=== PATIENT | male | born 1985 | race Two or more races ===

== ENCOUNTER 2017-07-06 16:50 | Emergency (ER) | payer MEDICAID ==
[~2017-07-06] VITALS: Ht 188 cm; Wt 153.0 kg
[~2017-07-06 16:50] MED LIST: HYDR-3965 PO; NABU500T2 PO; [UNRECOGNIZED DRUG - CODE] PO
[2017-07-06 17:07] VITALS: BP 152/79
[2017-07-06] MEDS ORDERED: ibuprofen 200mg tablet PO ONE (18:35)
== END 2017-07-06 19:11 | disposition home or self-care (01) ==
LOC: ER 16:50
DX: S69.92XA Unspecified injury of left wrist, hand and finger(s), initial encounter (principal); M25.532 Pain in left wrist; Z90.49 Acquired absence of other specified parts of digestive tract; Z98.890 Other specified postprocedural states; W22.8XXA Striking against or struck by other objects, initial encounter; Y93.83 Activity, rough housing and horseplay; Y92.099 Unspecified place in other non-institutional residence as the place of occurrence of the external cause; Y99.9 Unspecified external cause status
CPT/HCPCS: 73090; 73110; 99284; A6449

== ENCOUNTER 2017-07-15 08:58 | Outpatient (CLI) | payer MEDICAID | END 2017-07-15 09:35 | disposition home or self-care (01) | LOC: ORTHO 08:58 | PROVIDERS: ATTEND Nurse Practitioner Family | DX: S69.92XA Unspecified injury of left wrist, hand and finger(s), initial encounter (principal); F17.210 Nicotine dependence, cigarettes, uncomplicated; I10 Essential (primary) hypertension; Z90.49 Acquired absence of other specified parts of digestive tract; X58.XXXA Exposure to other specified factors, initial encounter; Y93.89 Activity, other specified; Y92.89 Other specified places as the place of occurrence of the external cause; Y99.8 Other external cause status | CPT/HCPCS: 29260 ==

== ENCOUNTER 2018-06-07 15:24 | Emergency (ER) | payer MEDICAID ==
[~2018-06-07] VITALS: Ht 185.4 cm; Wt 157.5 kg
[~2018-06-07 15:24] MED LIST changes: +DIPH-681 PO; +PROC-8 PEG
[2018-06-07 16:31] LABS: BASOPHILS % (AUTO) 0.4 % (0-1); EOSINOPHILS # (AUTO) 0.3 X10'3 (0-0.9); EOSINOPHILS % (AUTO) 2.5 % (0-6); HEMATOCRIT 42.7 % (42.0-52.0); HEMOGLOBIN 14.1 g/dl (14.0-17.9); LYMPHOCYTES # (AUTO) 1.6 X10'3 (1.1-4.8); LYMPHOCYTES % (AUTO) 13.2 % (21-51); MEAN CORPUSCULAR HEMOGLOBIN 28.4 PG (27.0-31.0); MEAN CORPUSCULAR HGB CONC 32.9 % (33.0-36.5); MEAN CORPUSCULAR VOLUME 86.3 FL (78-98); MEAN PLATELET VOLUME 9.2 FL (7.4-10.4); MONOCYTES # (AUTO) 0.7 X10'3 (0-0.9); NEUTROPHILS # (AUTO) 9.7 X10'3 (1.8-7.7); NEUTROPHILS % (AUTO) 77.9 % (42-75); PLATELET COUNT 239 X10'3 (140-440); RED BLOOD COUNT 4.95 X10'6 (4.70-6.10); RED CELL DISTRIBUTION WIDTH 14.1 % (11.5-14.5); WHITE BLOOD COUNT 12.5 X10'3 (4.5-11.0)
[2018-06-07 16:49] LABS: ALANINE AMINOTRANSFERASE 91 U/L (12-78); ALBUMIN 3.3 G/DL (3.4-5.0); ALBUMIN/GLOBULIN RATIO 0.9 (1.1-1.5); ALKALINE PHOSPHATASE 84 IU/L (46-116); ANION GAP 8 (8-16); ASPARTATE AMINO TRANSFERASE 16 U/L (10-37); BILIRUBIN,TOTAL 0.2 MG/DL (0.1-1.0); BLOOD UREA NITROGEN 9 MG/DL (7-18); BUN/CREATININE RATIO 11.5 (5.4-32.0); CALCIUM 8.3 MG/DL (8.5-10.1); CHLORIDE 106 MMOL/L (99-107); CREATININE 0.78 MG/DL (0.60-1.10); GLUCOSE 120 MG/DL (70-104); POTASSIUM 3.8 MMOL/L (3.5-5.1); SODIUM 141 MMOL/L (135-145); TOTAL CARBON DIOXIDE 27.2 MMOL/L (24-32); TOTAL PROTEIN 6.9 G/DL (6.4-8.2); eGFR > 90 ML/MIN
[2018-06-07 16:54] LABS: PARTIAL THROMBOPLASTIN TIME 27 SECONDS (22-32); PROTHROMBIN TIME 10.3 SECONDS (9.0-12.0)
[2018-06-07] MEDS ORDERED: IBUP100O20 PO (17:58)
[2018-06-07 18:38] VITALS: BP 130/77
== END 2018-06-07 18:40 | disposition home or self-care (01) ==
LOC: ER 15:24
DX: J95.830 Postprocedural hemorrhage of a respiratory system organ or structure following a respiratory system procedure (principal); G89.29 Other chronic pain; Z90.49 Acquired absence of other specified parts of digestive tract; Z98.890 Other specified postprocedural states; Z56.0 Unemployment, unspecified; Z79.899 Other long term (current) drug therapy
CPT/HCPCS: 36415; 80053; 85025; 85610; 85730; 86885; 86900; 86901; 99283

== ENCOUNTER 2019-03-28 20:44 | Emergency (ER) | payer MEDICAID ==
[~2019-03-28] VITALS: Ht 185.4 cm; Wt 145.0 kg
[2019-03-28] MEDS ORDERED: CEPH500C5 PO (22:26)
[2019-03-28 22:43] VITALS: BP 138/74
== END 2019-03-28 22:46 | disposition home or self-care (01) ==
LOC: ER 20:44
DX: K42.9 Umbilical hernia without obstruction or gangrene (principal); L03.311 Cellulitis of abdominal wall; G89.29 Other chronic pain; Z90.49 Acquired absence of other specified parts of digestive tract; Z98.890 Other specified postprocedural states; Z56.0 Unemployment, unspecified; Z79.2 Long term (current) use of antibiotics; Z79.899 Other long term (current) drug therapy
CPT/HCPCS: 74176; 99284

== ENCOUNTER 2019-04-04 09:05 | Observation (INO) | payer MEDICAID ==
[~2019-04-04] VITALS: Ht 185.4 cm; Wt 161.4 kg
[2019-04-04] VITALS (18 sets, daily range): BP systolic 126–171; BP diastolic 72–101
[~2019-04-04 09:05] MED LIST changes: +CEPH500C5 PO
[2019-04-04] MEDS ORDERED: NO HOME MEDS (12:50)
[2019-04-04 12:51] LABS: BASOPHILS # (AUTO) 0.1 X10'3 (0-0.2); BASOPHILS % (AUTO) 0.6 % (0-1); EOSINOPHILS # (AUTO) 0.3 X10'3 (0-0.9); EOSINOPHILS % (AUTO) 2.9 % (0-6); LYMPHOCYTES # (AUTO) 1.5 X10'3 (1.1-4.8); LYMPHOCYTES % (AUTO) 16.2 % (21-51); MEAN CORPUSCULAR HEMOGLOBIN 28.9 PG (27.0-31.0); MEAN CORPUSCULAR HGB CONC 33.6 g/dL (33.0-36.5); MEAN CORPUSCULAR VOLUME 86.1 FL (78-98); MEAN PLATELET VOLUME 9.2 FL (7.4-10.4); MONOCYTES # (AUTO) 0.5 X10'3 (0-0.9); MONOCYTES % (AUTO) 5.5 % (2-12); NEUTROPHILS # (AUTO) 7.1 X10'3 (1.8-7.7); NEUTROPHILS % (AUTO) 74.8 % (42-75); PRE OP HEMOGLOBIN 14.8 g/dL (14.0-17.9); PRE OP PLATELET COUNT 232 X10'3 (140-440); RED BLOOD COUNT 5.11 X10'6 (4.70-6.10); RED CELL DISTRIBUTION WIDTH 13.6 % (11.5-14.5)
[2019-04-04 13:01] LABS: ALKALINE PHOSPHATASE 101 IU/L (46-116); BLOOD UREA NITROGEN 12 MG/DL (7-18); BUN/CREATININE RATIO 15.2 (5.4-32.0); CALCIUM 8.8 MG/DL (8.5-10.1); CHLORIDE 106 MMOL/L (99-107); CREATININE 0.79 MG/DL (0.60-1.10); PRE OP ALT 53 U/L (30-65); PRE OP ANION GAP 9 (8-16); PRE OP AST 25 U/L (10-37); PRE OP BILIRUB, TOTAL 0.4 MG/DL (0.0-1.0); PRE OP GLUCOSE 90 MG/DL (70-104); PRE OP POTASSIUM 4.1 MMOL/L (3.4-5.1); PRE OP SODIUM 143 MMOL/L (135-145); TOTAL CARBON DIOXIDE 27.9 MMOL/L (24-32); TOTAL PROTEIN 8.1 G/DL (6.4-8.2); eGFR > 90 ML/MIN
[2019-04-04] MEDS ORDERED: meperidine/PF 25mg/ml syringe IV ONE (13:15)
[2019-04-04] MEDS ORDERED: cefazolin/dext.iso 2gm/100ml 100 ML IV ONE (13:30)
[2019-04-04] MEDS ORDERED: famotidine 20mg tablet PO ONE (13:35)
[2019-04-04] MEDS ORDERED: albuterol 2.5 MG/3 ML nebule NEB ONE (13:45)
[2019-04-04] MEDS ORDERED: cefazolin/dext.iso 2gm/50ml 50 ML IV ONE (14:00)
[2019-04-04] MEDS ORDERED: BUPIVAcaine/PF 2.5 mg/ml (0.25%) 30ml vial ONE (14:29)
[2019-04-04] MEDS ORDERED: ceFAZolin 1000mg inj ONE (14:29)
[2019-04-04] MEDS ORDERED: midazolam 2 mg/2 ml injection ONE (14:56)
[2019-04-04] MEDS ORDERED: fentaNYL /PF 50mcg/ml 5ml ampule ONE (14:56)
[2019-04-04] MEDS ORDERED: sevoflurane 250ml liquid IH ONE (15:10)
[2019-04-04] MEDS ORDERED: hydrALAZINE 20mg/ml inj. IV ONE (15:10)
[2019-04-04] MEDS ORDERED: succinylcholine 20mg/ml inj IV ONE (16:00)
[2019-04-04] MEDS ORDERED: ondansetron/PF 4mg/2ml inj ONE (16:00)
[2019-04-04] MEDS ORDERED: rocuronium 10mg/ml inj IV ONE (16:00)
[2019-04-04] MEDS ORDERED: neostigmine methylsulfate 1 MG/ML 10ml vial ONE (16:00)
[2019-04-04] MEDS ORDERED: LIDOcaine 2% (20mg/ml) 5ml vial ONE (16:00)
[2019-04-04] MEDS ORDERED: glycopyrrolate 0.2mg/ml inj ONE (16:00)
[2019-04-04] MEDS ORDERED: propofol inj 20 ML IV ONE (16:00)
[2019-04-04] MEDS ORDERED: dexamethasone sod phosphate 4mg/ml inj. ONE (16:00)
[2019-04-04] MEDS ORDERED: neomy sulf/bacitrac zn/polymixin b oint 14.2 gm tube TP ONE (16:27)
--- NOTE | 2019-04-04 16:44 | NUR ---
Received from OR via [facility] , accompanied by Anesthesiologist PRIYANKA and report given by Anesthesiolgist. PATIENT WITH 20G PIV IN RIGHT UE RUNNING LR AT 100. DENIES PAIN AT THIS TIME. BREATHING TREATMENT UPON ARRIVAL VIA RT. 3 ABDOMINAL BANDAIDS PRESENT. VSS. Addendum: 04/04/19 at 1657 by Eugene Weaver RN, RN Amended: Links added.
[2019-04-04] MEDS ORDERED: ringers solution, lacted 1,000 ML IV SCH (16:48)
[2019-04-04] MEDS ORDERED: meperidine/PF 25mg/ml syringe IV PRN ×3 (16:50)
[2019-04-04] MEDS ORDERED: morphine 4 MG/ML inj SYRINge IV PRN ×2 (16:50)
[2019-04-04] MEDS ORDERED: proCHLORperazine 10 MG/2 ml inj IV PRN (16:50)
[2019-04-04] MEDS ORDERED: ondansetron/PF 4mg/2ml inj IV PRN ×2 (16:50→17:15)
[2019-04-04] MEDS ORDERED: ipratropium/albuterol 3ml nebule ONE (16:59)
[2019-04-04] MEDS ORDERED: albuterol 60 PUFF/8GM Inhaler IH ONE (16:59)
[2019-04-04] MEDS: ipratropium/albuterol 3ml nebule NEB PRN ×2 (17:00→21:07)
[2019-04-04] MEDS ORDERED: meperidine/PF 25mg/ml syringe ONE (17:08)
[2019-04-04] MEDS ORDERED: HYDROcodone/acetaminophen 10/325mg tab PO PRN (17:15)
--- NOTE | 2019-04-04 18:14 | NUR ---
ALL CRITERIA FOR TRANSFER TO THE FLOOR HAS BEEN ACHIEVED. VSS. BED LOW, CALL LIGHT AND VS. SET IN PLACE. RN PRESENT TO ACCEPT CARE. PATIENT RESTING COMFORTABLY IN BED. BELONGINGS SENT WITH PATIENT. DRESSINGS CDI. MARIA E HORNER PRESENT TO ACCEPT PATIENT UPON ARRIVAL.. PATIENT TRANSFERED SELF TO BED WITH CGA.DISPATCH CLERK PRESENT TO ASSIST IN SET UP OF VS ON THIS PATIENT. LOW ABDOMINAL BANDAID OOZY WITH NEOSPORIN. Addendum: 04/04/19 at 1831 by Eugene Flores - MARI AE SANDERSON Amended: Links added.
--- NOTE | 2019-04-04 18:15 | NUR ---
RECEIVED REPORT FROM MARIA E VALENCIA FROM . PT BROUGHT UP VIA GURNEY TRANSFERRED TO BED. ALERT AND ORIENTED. ORIENTED TO ROOM AND ROUTINE. Addendum: 04/05/19 at 0105 by Rah Grullon RN Amended: Links added.
--- NOTE | 2019-04-04 18:25 | NUR ---
PT DECLINES FULL SKIN ASSESSMENT BY Zay SANDERSON, STATES SKIN INTACT, DRESSING TO ABD INTACT, AMRS, CHEST BACK, LEGS AND BUTTOCKS CLEAR. Addendum: 04/05/19 at 0148 by Rah Grullon RN Amended: Links added.
[2019-04-04] MEDS: HYDROcodone/acetaminophen 10/325mg tab PO PRN (19:29)
[2019-04-04] MEDS: ketorolac trometh. 30mg/ml inj. IV PRN (22:11)
[2019-04-04] MEDS: ceFAZolin 1GM/D5W- ADD-VANTAGE 50 ML IV SCH (23:47)
[2019-04-04] MEDS: normal saline 1000ml 1,000 ML IV SCH (23:47)
[2019-04-05 00:30] VITALS: BP 113/60
[2019-04-05] MEDS: normal saline 1000ml 1,000 ML IV SCH ×2 (03:15→13:15)
[2019-04-05] MEDS: HYDROcodone/acetaminophen 10/325mg tab PO PRN (04:27)
[2019-04-05] MEDS: ketorolac trometh. 30mg/ml inj. IV PRN (04:27)
--- NOTE | 2019-04-05 06:59 | NUR ---
Patient in room [facility]. I have received report from Marcela SANDERSON and had the opportunity to ask questions and assume patient care.
--- NOTE | 2019-04-05 07:05 | NUR ---
Problems reprioritized. Patient report given, questions answered & plan of care reviewed with MARIA E Smith, RN. Addendum: 04/05/19 at 0706 by Rah Grullon RN Amended: Links added.
[2019-04-05 07:18] VITALS: BP 146/81
[2019-04-05] MEDS: ceFAZolin 1GM/D5W- ADD-VANTAGE 50 ML IV SCH (07:31)
[2019-04-05] MEDS ORDERED: lactobacillus rhamnosus 10,000 MMU CELLS/CAPSULE PO SCH (20:00)
== END 2019-04-05 14:35 | disposition home or self-care (01) ==
LOC: PAS 09:05 → SUR 3N 17:26
PROVIDERS: ADMIT Surgery; ATTEND Surgery
DX: K42.0 Umbilical hernia with obstruction, without gangrene (principal); K76.0 Fatty (change of) liver, not elsewhere classified; L03.316 Cellulitis of umbilicus; M19.90 Unspecified osteoarthritis, unspecified site; E66.01 Morbid (severe) obesity due to excess calories; F17.210 Nicotine dependence, cigarettes, uncomplicated; Z90.49 Acquired absence of other specified parts of digestive tract; Z90.89 Acquired absence of other organs; Z68.42 Body mass index [BMI] 45.0-49.9, adult
CPT/HCPCS: 36415; 49653; 80053; 85025; 87081; 93005; 94640; 94760; 96365; 96366; 96375; 96376; C1758; G0378; J0330; J0360; J0690; J1100; J1885; J2001; J2175; J2250; J2270; J2405; J2704; J2710; J3010; J3490; J7030; J7120; A4215; A4618; A7000

== ENCOUNTER 2019-09-15 12:00 | Emergency (ER) | payer MEDICAID ==
[~2019-09-15] VITALS: Ht 185.4 cm; Wt 36.6 kg
[~2019-09-15 12:00] MED LIST changes: -CEPH500C5 PO; -DIPH-681 PO; -HYDR-3965 PO; -NABU500T2 PO; +NO HOME MEDS; -PROC-8 PEG; -[UNRECOGNIZED DRUG - CODE] PO
[2019-09-15 12:04] VITALS: BP 150/85
[2019-09-15] MEDS ORDERED: BUPIVAcaine/PF 7.5mg/ml (0.75%) 10ml vial IJ ONE (13:10)
[2019-09-15] MEDS ORDERED: NAPR-56 PO (14:37)
== END 2019-09-15 14:52 | disposition home or self-care (01) ==
LOC: ER 12:00
DX: R51 Headache (principal); M54.2 Cervicalgia; R42 Dizziness and giddiness; G89.29 Other chronic pain; Z90.49 Acquired absence of other specified parts of digestive tract; Z90.89 Acquired absence of other organs; Z56.0 Unemployment, unspecified; Z79.899 Other long term (current) drug therapy
CPT/HCPCS: 64450; 70450; 99284

== ENCOUNTER 2020-01-16 05:17 | Day surgery (SDC) | payer MEDICAID ==
[2020-01-09 16:46] LABS: CLARITY,URINE CLEAR (Clear); COLOR,URINE YELLOW (Yellow); GLUCOSE, URINE NEGATIVE (Neg); KETONES,URINE NEGATIVE (Neg); LEUKOCYTE ESTERASE ,URINE NEGATIVE (Neg); NITRITES, URINE NEGATIVE (Neg); OCCULT BLOOD,URINE NEGATIVE (Neg); PROTEIN,URINE NEGATIVE (Neg); UA COLLECTION TYPE CLN CATCH MIDSTREAM; UROBILINOGEN,URINE 0.2 E.U/dL (0.2-1.0)
[2020-01-09 16:52] LABS: BASOPHILS # (AUTO) 0.1 X10'3 (0-0.2); BASOPHILS % (AUTO) 0.9 % (0-1); EOSINOPHILS # (AUTO) 0.4 X10'3 (0-0.9); LYMPHOCYTES # (AUTO) 1.9 X10'3 (1.1-4.8); LYMPHOCYTES % (AUTO) 16.5 % (21-51); MEAN CORPUSCULAR HEMOGLOBIN 28.3 PG (27.0-31.0); MEAN CORPUSCULAR HGB CONC 33.1 g/dL (33.0-36.5); MEAN CORPUSCULAR VOLUME 85.4 FL (78-98); MEAN PLATELET VOLUME 9.4 FL (7.4-10.4); MONOCYTES # (AUTO) 0.9 X10'3 (0-0.9); MONOCYTES % (AUTO) 7.3 % (2-12); NEUTROPHILS # (AUTO) 8.4 X10'3 (1.8-7.7); NEUTROPHILS % (AUTO) 72.3 % (42-75); PRE OP HEMATOCRIT 42.8 % (42.0-52.0); PRE OP HEMOGLOBIN 14.2 g/dL (14.0-17.9); PRE OP PLATELET COUNT 264 X10'3 (140-440); RED BLOOD COUNT 5.01 X10'6 (4.70-6.10); RED CELL DISTRIBUTION WIDTH 13.9 % (11.5-14.5)
[2020-01-09 17:01] LABS: ALBUMIN 3.8 G/DL (3.4-5.0); ALKALINE PHOSPHATASE 88 IU/L (46-116); BLOOD UREA NITROGEN 14 MG/DL (7-18); BUN/CREATININE RATIO 15.2 (5.4-32.0); CALCIUM 8.7 MG/DL (8.5-10.1); CHLORIDE 107 MMOL/L (99-107); CREATININE 0.92 MG/DL (0.60-1.10); PRE OP ALT 51 U/L (30-65); PRE OP ANION GAP 5 (8-16); PRE OP AST 22 U/L (10-37); PRE OP BILIRUB, TOTAL 0.2 MG/DL (0.0-1.0); PRE OP GLUCOSE 100 MG/DL (70-104); PRE OP SODIUM 142 MMOL/L (135-145); TOTAL CARBON DIOXIDE 30.1 MMOL/L (24-32); TOTAL PROTEIN 7.8 G/DL (6.4-8.2); eGFR > 90 ML/MIN
[2020-01-16] VITALS (19 sets, daily range): BP systolic 117–189; BP diastolic 64–114
[~2020-01-16] VITALS: Ht 185.4 cm; Wt 145.2 kg
[~2020-01-16 05:17] MED LIST changes: +ringers solution, lacted 1,000 ML IV SCH
[2020-01-16] MEDS ORDERED: famotidine 20mg tablet PO ONE (05:30)
[2020-01-16] MEDS ORDERED: ceFAZolin inj. 3,000 MG in normal saline 100ml IV soln 100 ML IV ONE (05:30)
[2020-01-16] MEDS ORDERED: LIDOcaine 1% (10mg/ml) 2ml vial ONE (05:43)
[2020-01-16] MEDS ORDERED: BUPIVAcaine/PF 2.5 mg/ml (0.25%) 30ml vial ONE ×2 (06:47→07:20)
[2020-01-16] MEDS ORDERED: BUPIVACAINE liposomal/PF 13.3 MG/ML vial IM ONE (07:20)
[2020-01-16] MEDS ORDERED: fentaNYL/PF 50MCG/1 ML 2ML syringe ONE (07:25)
[2020-01-16] MEDS ORDERED: midazolam 2 mg/2 ml injection ONE (07:26)
[2020-01-16] MEDS ORDERED: LIDOcaine 2% 5ml jelly ONE (07:35)
[2020-01-16] MEDS ORDERED: propofol inj 20 ML IV ONE (08:14)
[2020-01-16] MEDS ORDERED: ondansetron/PF 4mg/2ml inj ONE (08:14)
[2020-01-16] MEDS ORDERED: dexamethasone sod phosphate 4mg/ml inj. ONE (08:14)
[2020-01-16] MEDS ORDERED: LIDOcaine 2% (20mg/ml) 5ml vial ONE (08:14)
[2020-01-16] MEDS ORDERED: rocuronium 10mg/ml inj IV ONE (08:14)
[2020-01-16] MEDS ORDERED: ringers solution, lacted 1,000 ML IV SCH (08:21)
[2020-01-16] MEDS ORDERED: meperidine/PF 25mg/ml syringe IV PRN ×2 (08:25)
[2020-01-16] MEDS ORDERED: labetalol 20mg/4ml (5mg/ml) syringe IV PRN (08:25)
[2020-01-16] MEDS ORDERED: hydrALAZINE 20mg/ml inj. IV PRN (08:25)
[2020-01-16] MEDS ORDERED: ondansetron/PF 4mg/2ml inj IV PRN (08:25)
[2020-01-16] MEDS ORDERED: proCHLORperazine 10 MG/2 ml inj IV PRN (08:25)
[2020-01-16] MEDS ORDERED: ketorolac trometh. 30mg/ml inj. IV ONE (08:25)
[2020-01-16] MEDS ORDERED: morphine 2 MG/ML inj. syringe IV PRN (08:25)
[2020-01-16] MEDS ORDERED: bacitracin 15gm ointment TP ONE (09:04)
[2020-01-16] MEDS ORDERED: sugammadex 200mg/2ml injection IV ONE (09:06)
--- NOTE | 2020-01-16 09:44 | NUR ---
Received from OR via [facility] , accompanied by Anesthesiologist SOCRATES and report given by Anesthesiolgist. PATIENT WITH 7 LAP SITES PRESENT. VSS. MEDICATED FOR PAIN UPON ARRIVAL. 20G PIV IN LEFT HAND. Addendum: 01/16/20 at 0958 by Eugene Weaver RN RN Amended: Links added.
[2020-01-16] MEDS: meperidine/PF 25mg/ml syringe IV PRN ×2 (09:51→10:43)
[2020-01-16] MEDS: morphine 4 MG/ML inj SYRINge IV PRN ×2 (10:12→10:33)
[2020-01-16] MEDS ORDERED: HYDROmorphone inj. 0.5 MG/0.5 ML DISP.SYRIN IV PRN (10:50)
--- NOTE | 2020-01-16 11:14 | NUR ---
Report called to receiving nurse. Transferred via [facility] WITH Belongings . Special Issues communicated to receiving nurse LITO SANDERSON.VSS. PATIENT STILL ON 2L 02 VIA MA. PAIN TOLEARBLE AT THIS TIME. Addendum: 01/16/20 at 1126 by Eugene Weaver RN, RN Amended: Links added.
--- NOTE | 2020-01-16 11:15 | NUR ---
RECEIVED PT FROM PACU FOR PAIN CONTROL AND LOW 02 SATS PRIOR TO DC HOME. ENCOURAGED PT TO C&DB, IS PROVIDED WITH INSTRUCTIONS PT ATTEMPTED USE WITH GOOD EFFORT AND GOOD INCREASE IN O2 SATS. SPOKE WITH DR. VENTURA R/T PAIN, PO PAIN MED ORDERED FOR PT. SALINES AND WATER ELIAN WELL
[2020-01-16] MEDS ORDERED: oxyCODONE/APAP 10/325mg tablet PO ONE (11:30)
--- NOTE | 2020-01-16 11:35 | NUR ---
PO PAIN GIVEN
--- NOTE | 2020-01-16 12:15 | NUR ---
O2 SAT AND PAIN BETTER PER PT. WILL ATTEMPT GETTING PT UP AND MOBILE AT 1230, PLAN REVIEWED WITH PT AND AGREEABLE
--- NOTE | 2020-01-16 12:50 | NUR ---
PT ABLE TO STAND AT BEDSIDE. RN ASSISTED PT TO DRESS. AMB IN [place]IREZ AND ELIAN WELL. ABD SPLINTING EDUCATION GIVEN, PT DID WELL IMPLEMENTING TECHNIQUE. PER PT IT HELP A LOT.
--- NOTE | 2020-01-16 14:30 | NUR ---
PT FELLING BETTER AFTER SOME SLEEP. VOIDED QS. DC READY. IV DC'D. DC INSTR DISCUSSED WITH PT AND COPY SENT HOME WITH PT. PT AWARE PAIN MEDS ARE AT PHARMACY OF CHOICE SENT IN BY MD OFFICE. PT TO POV VIA FOR DC HOME, BROTHER DRIVING. ALL BELONGINGS SENT WITH PT
== END 2020-01-16 14:30 | disposition home or self-care (01) ==
LOC: PAS 05:17
PROVIDERS: ATTEND Surgery
DX: K42.0 Umbilical hernia with obstruction, without gangrene (principal); G47.30 Sleep apnea, unspecified; M19.90 Unspecified osteoarthritis, unspecified site; E66.01 Morbid (severe) obesity due to excess calories; Z98.890 Other specified postprocedural states; F17.210 Nicotine dependence, cigarettes, uncomplicated; Z90.49 Acquired absence of other specified parts of digestive tract; Z79.899 Other long term (current) drug therapy
CPT/HCPCS: 36415; 49653; 64488; 80053; 81003; 82948; 85025; 87635; 93005; C1758; C1781; C9290; C9399; C9803; J0690; J1100; J1170; J1885; J2001; J2175; J2250; J2270; J2405; J2704; J3010; J3490; J7120; U0003; A4215; A4618; A7000

== ENCOUNTER 2020-11-02 11:03 | Emergency (ER) | payer MEDICAID ==
[~2020-11-02] VITALS: Ht 185.4 cm; Wt 155.9 kg
[~2020-11-02 11:03] MED LIST changes: -ringers solution, lacted 1,000 ML IV SCH
[2020-11-02 11:48] LABS: CLARITY,URINE CLEAR (Clear); COLOR,URINE YELLOW (Yellow); GLUCOSE, URINE NEGATIVE (Neg); KETONES,URINE NEGATIVE (Neg); LEUKOCYTE ESTERASE ,URINE NEGATIVE (Neg); NITRITES, URINE NEGATIVE (Neg); OCCULT BLOOD,URINE NEGATIVE (Neg); PH,URINE 5.5 (4.8-8.0); PROTEIN,URINE NEGATIVE (Neg); UROBILINOGEN,URINE 0.2 E.U/dL (0.2-1.0)
[2020-11-02 11:50] LABS: UA COLLECTION TYPE URINAL
[2020-11-02] MEDS ORDERED: acetaminophen 325mg tablet PO ONE (12:05)
[2020-11-02] MEDS ORDERED: cyclobenzaprine 10mg tablet PO ONE (12:05)
[2020-11-02 12:23] VITALS: BP 144/78
== END 2020-11-02 13:14 | disposition home or self-care (01) ==
LOC: ER 11:03
DX: R07.89 Other chest pain (principal); G89.29 Other chronic pain; F17.200 Nicotine dependence, unspecified, uncomplicated; Z90.49 Acquired absence of other specified parts of digestive tract; Z56.0 Unemployment, unspecified
CPT/HCPCS: 71045; 81003; 99284

== ENCOUNTER 2021-02-04 06:35 | Inpatient (IN) | payer MEDICAID ==
[2021-01-28 15:15] LABS: CLARITY,URINE CLEAR (Clear); COLOR,URINE YELLOW (Yellow); GLUCOSE, URINE NEGATIVE (Neg); KETONES,URINE NEGATIVE (Neg); LEUKOCYTE ESTERASE ,URINE NEGATIVE (Neg); NITRITES, URINE NEGATIVE (Neg); OCCULT BLOOD,URINE NEGATIVE (Neg); PROTEIN,URINE NEGATIVE (Neg); UA COLLECTION TYPE VOIDED; UROBILINOGEN,URINE 0.2 E.U/dL (0.2-1.0)
[2021-01-28 15:20] LABS: BASOPHILS # (AUTO) 0.1 X10'3 (0-0.2); BASOPHILS % (AUTO) 0.6 % (0-1); EOSINOPHILS # (AUTO) 0.4 X10'3 (0-0.9); EOSINOPHILS % (AUTO) 3.1 % (0-6); LYMPHOCYTES % (AUTO) 16.7 % (21-51); MEAN CORPUSCULAR HEMOGLOBIN 28.2 PG (27.0-31.0); MEAN CORPUSCULAR HGB CONC 33.6 g/dL (33.0-36.5); MEAN CORPUSCULAR VOLUME 84.1 FL (78-98); MEAN PLATELET VOLUME 9.4 FL (7.4-10.4); MONOCYTES # (AUTO) 0.7 X10'3 (0-0.9); MONOCYTES % (AUTO) 5.6 % (2-12); NEUTROPHILS # (AUTO) 8.9 X10'3 (1.8-7.7); PRE OP HEMATOCRIT 44.2 % (42.0-52.0); PRE OP HEMOGLOBIN 14.8 g/dL (14.0-17.9); PRE OP PLATELET COUNT 241 X10'3 (140-440); RED BLOOD COUNT 5.25 X10'6 (4.70-6.10); RED CELL DISTRIBUTION WIDTH 14.4 % (11.5-14.5)
[2021-01-28 15:31] LABS: ALBUMIN 3.9 G/DL (3.4-5.0); ALBUMIN/GLOBULIN RATIO 0.9 (1.1-1.5); ALKALINE PHOSPHATASE 86 IU/L (46-116); BLOOD UREA NITROGEN 14 MG/DL (7-18); BUN/CREATININE RATIO 17.9 (5.4-32.0); CALCIUM 9.1 MG/DL (8.5-10.1); CHLORIDE 105 MMOL/L (99-107); CREATININE 0.78 MG/DL (0.60-1.10); PRE OP ALT 54 U/L (30-65); PRE OP ANION GAP 8 (8-16); PRE OP AST 24 U/L (10-37); PRE OP BILIRUB, TOTAL 0.3 MG/DL (0.0-1.0); PRE OP GLUCOSE 97 MG/DL (70-104); PRE OP POTASSIUM 4.1 MMOL/L (3.4-5.1); PRE OP SODIUM 141 MMOL/L (135-145); TOTAL CARBON DIOXIDE 28.2 MMOL/L (24-32); TOTAL PROTEIN 8.1 G/DL (6.4-8.2); eGFR > 90 ML/MIN
[~2021-02-04] VITALS: Ht 185.4 cm; Wt 160.6 kg
[2021-02-04] VITALS (23 sets, daily range): BP systolic 132–192; BP diastolic 70–106
[~2021-02-04 06:35] MED LIST changes: +IBUP-24 PO; -NO HOME MEDS; +TEST200V10 IM; +ceFAZolin inj. 3,000 MG in normal saline 100ml IV soln 100 ML IV ONE; +famotidine 20mg tablet PO ONE
[2021-02-04] MEDS: ringers solution, lacted 1,000 ML IV SCH ×2 (08:05→17:07)
[2021-02-04] MEDS ORDERED: BUPIVAcaine/PF 2.5mg/ml (0.25%) 10ml vial ONE ×2 (10:11→13:04)
[2021-02-04] MEDS ORDERED: proCHLORperazine 10 MG/2 ml inj IV PRN (10:25)
[2021-02-04] MEDS ORDERED: morphine 2 MG/ML inj. syringe IV PRN (10:25)
[2021-02-04] MEDS ORDERED: ringers solution, lacted 1,000 ML IV SCH (10:25)
[2021-02-04] MEDS ORDERED: ondansetron/PF 4mg/2ml inj IV PRN (10:25)
[2021-02-04] MEDS ORDERED: meperidine/PF 25mg/ml syringe IV PRN ×2 (10:25)
[2021-02-04] MEDS ORDERED: sevoflurane 250ml liquid IH ONE (11:11)
[2021-02-04] MEDS ORDERED: midazolam 1 mg/ML 2ml injection ONE (11:15)
[2021-02-04] MEDS ORDERED: fentaNYL /PF 50mcg/ml 5ml ampule ONE (11:15)
[2021-02-04] MEDS ORDERED: BUPIVACAINE liposomal/PF 13.3 MG/ML vial IM ONE ×2 (11:34→12:10)
[2021-02-04] MEDS ORDERED: acetaminophen 1,000mg/100ml IV 100 ML IV ONE (12:09)
[2021-02-04] MEDS ORDERED: dexamethasone sod phosphate 4mg/ml inj. ONE (12:09)
[2021-02-04] MEDS ORDERED: rocuronium 10mg/ml inj IV ONE (12:09)
[2021-02-04] MEDS ORDERED: neostigmine methylsulfate 1 MG/ML 10ml vial ONE (12:09)
[2021-02-04] MEDS ORDERED: LIDOcaine 2% (20mg/ml) 5ml vial ONE (12:09)
[2021-02-04] MEDS ORDERED: propofol inj 20 ML IV ONE (12:09)
[2021-02-04] MEDS ORDERED: ondansetron/PF 4mg/2ml inj ONE (12:09)
[2021-02-04] MEDS ORDERED: glycopyrrolate 0.2mg/ml inj ONE (12:09)
[2021-02-04] MEDS ORDERED: hydrALAZINE 20mg/ml inj. IV ONE (12:17)
[2021-02-04] MEDS ORDERED: meperidine/PF 50mg/ml syringe ONE (13:44)
[2021-02-04] MEDS ORDERED: naloxone 0.4 mg/ml inj IV PRN (13:45)
[2021-02-04] MEDS ORDERED: HYDROcodone/acetaminophen 5mg/325mg tablet PO PRN (13:45)
[2021-02-04] MEDS ORDERED: CADD PCA waste documentation MC PRN (13:45)
--- NOTE | 2021-02-04 13:48 | NUR ---
Received from OR via [facility] , accompanied by Anesthesiologist PRIYANKA and report given by Anesthesiolgist. PATIENT WITH 20G PIV IN LEFT UE RUNNING LR AT 100. LAP SITES TO ABDOMEN ARE CDI. 10L MASK ON AND POSITIONED FOR OPTIMAL BREATHING. 10L MASK ON WITH 100% SATS. Addendum: 02/04/21 at 1404 by Eugene Weaver RN, RN Amended: Links added.
[2021-02-04] MEDS ORDERED: ibuprofen 200mg tablet PO PRN (14:00)
[2021-02-04] MEDS: HYDROmorph./NS 0.2 mg/ml CADD 100 ML IV SCH ×6 (14:25→23:00)
[2021-02-04] MEDS: morphine 4 MG/ML inj SYRINge IV PRN ×2 (14:35→15:39)
[2021-02-04] MEDS: meperidine/PF 25mg/ml syringe IV PRN ×2 (14:47→15:14)
--- NOTE | 2021-02-04 15:45 | NUR ---
Pt arrived to surgical floor via gurney. Transferred to hospital bed using hovermat. Post op VS started, call light placed within reach. 2 bags of belongings transferred with pt, 1 black backpack and 1 clear bag. Will continue to monitor.
--- NOTE | 2021-02-04 15:48 | NUR ---
PATIENT HAS MET ALL CRITERIA FOR TRANSFER TO THE SURGICAL/[facility]/PCU/ORTHO/ICU FLOOR. VSS. DRESSINGS INTACT. BED LOW, CALL LIGHT PRESENT AND 2 RAILS UP. RN PRESENT TO ACCEPT CARE OF PATIENT AND REPORT HAS BEEN CALLED. ALL QUESTIONS ANSWERED TO ACCEPTING RN. MARIA E ABDALLA PRESENT TO ACCEPT AND ASSESS PATIENT. Addendum: 02/04/21 at 1559 by Eugene Flores - MARIA E RN Amended: Links added.
--- NOTE | 2021-02-04 18:40 | NUR ---
Problems reprioritized. Patient report given, questions answered & plan of care reviewed with MARIA E Villarreal.
[2021-02-04] MEDS: Potassium Cl inj 20 MEQ in ringers solution, lacted 1,000 ML IV SCH ×2 (19:59→21:50)
[2021-02-04] MEDS: docusate sod 100mg capsule PO SCH (20:00)
[2021-02-04] MEDS: ondansetron/PF 4mg/2ml inj IV PRN (20:13)
[2021-02-04] MEDS: ketorolac trometh. 30mg/ml inj. IV PRN (23:12)
[2021-02-05] VITALS: BP 127/64
[2021-02-05] MEDS: HYDROmorph./NS 0.2 mg/ml CADD 100 ML IV SCH ×12 (01:00→23:00)
[2021-02-05] MEDS: Potassium Cl inj 20 MEQ in ringers solution, lacted 1,000 ML IV SCH ×3 (04:35→22:05)
--- NOTE | 2021-02-05 06:44 | NUR ---
Problems reprioritized. Patient report given, questions answered & plan of care reviewed with Blank SANDERSON.
[2021-02-05 07:08] LABS: BASOPHILS % (AUTO) 0.2 % (0-1); EOSINOPHILS # (AUTO) 0.1 X10'3 (0-0.9); EOSINOPHILS % (AUTO) 0.6 % (0-6); HEMATOCRIT 38.1 % (42.0-52.0); HEMOGLOBIN 12.6 g/dl (14.0-17.9); LYMPHOCYTES # (AUTO) 1.3 X10'3 (1.1-4.8); LYMPHOCYTES % (AUTO) 8.9 % (21-51); MEAN CORPUSCULAR HEMOGLOBIN 28.3 PG (27.0-31.0); MEAN CORPUSCULAR VOLUME 85.8 FL (78-98); MEAN PLATELET VOLUME 9.5 FL (7.4-10.4); MONOCYTES # (AUTO) 1.1 X10'3 (0-0.9); MONOCYTES % (AUTO) 7.8 % (2-12); NEUTROPHILS % (AUTO) 82.5 % (42-75); PLATELET COUNT 271 X10'3 (140-440); RED BLOOD COUNT 4.45 X10'6 (4.70-6.10); RED CELL DISTRIBUTION WIDTH 14.4 % (11.5-14.5); WHITE BLOOD COUNT 14.5 X10'3 (4.5-11.0)
[2021-02-05] MEDS: docusate sod 100mg capsule PO SCH ×2 (07:53→19:58)
[2021-02-05] MEDS: ketorolac trometh. 30mg/ml inj. IV PRN (07:58)
[2021-02-05 08:00] VITALS: BP 123/65
[2021-02-05 11:00] VITALS: BP 169/79
[2021-02-05 15:00] VITALS: BP 143/59
--- NOTE | 2021-02-05 19:01 | NUR ---
Report given to Keya Laura Rn, pt resting comfortably in room.
[2021-02-05 20:00] VITALS: BP 162/80
[2021-02-06] VITALS: BP 134/71
[2021-02-06] MEDS: HYDROmorph./NS 0.2 mg/ml CADD 100 ML IV SCH ×12 (01:00→23:00)
[2021-02-06] MEDS: Potassium Cl inj 20 MEQ in ringers solution, lacted 1,000 ML IV SCH ×3 (01:59→18:53)
--- NOTE | 2021-02-06 06:40 | NUR ---
Problems reprioritized. Patient report given, questions answered & plan of care reviewed with LENY SANDERSON.
[2021-02-06 07:00] VITALS: BP 125/70
[2021-02-06] MEDS: docusate sod 100mg capsule PO SCH ×2 (07:38→19:29)
[2021-02-06 11:00] VITALS: BP 126/62
--- NOTE | 2021-02-06 12:59 | NUR ---
Dr Pandey rounded, speaking to pt and pt's SO. ordered Lovenox SQ with pharmacy to dose. Yari, pharmacist, stated that d/t pt is >150 kg heparin is indicated, not Lovenox. Also, as last dose of Toradol was on 02/05, and risk of bleeding increases if on both Toradol and Heparin, she recommended Toradol be discontinued. Dr. Pandey notified and is agreeable w/ above.
[2021-02-06] MEDS: ondansetron/PF 4mg/2ml inj IV PRN (13:20)
[2021-02-06] MEDS: ibuprofen 200mg tablet PO PRN (17:30)
[2021-02-06 18:00] VITALS: BP 128/70
[2021-02-06] MEDS: heparin, porcine 5000 units/ml vial SQ SCH (19:27)
[2021-02-06 23:45] VITALS: BP 116/59
[2021-02-07] MEDS: HYDROmorph./NS 0.2 mg/ml CADD 100 ML IV SCH ×4 (01:00→06:43)
[2021-02-07] MEDS: Potassium Cl inj 20 MEQ in ringers solution, lacted 1,000 ML IV SCH (03:53)
--- NOTE | 2021-02-07 06:46 | NUR ---
Report given to Cherelle SANDERSON, all questions answered. Pt doing well, no new complaints or problems.
--- NOTE | 2021-02-07 06:51 | NUR ---
Patient in room [facility] 345. I have received report from Blank SANDERSON and had the opportunity to ask questions and assume patient care.
[2021-02-07 07:00] VITALS: BP 138/77
[2021-02-07] MEDS: heparin, porcine 5000 units/ml vial SQ SCH (07:59)
[2021-02-07] MEDS ORDERED: oxyCODONE/APAP 10/325mg tablet PO PRN (08:00)
[2021-02-07] MEDS: docusate sod 100mg capsule PO SCH (08:00)
[2021-02-07] MEDS: ibuprofen 200mg tablet PO PRN (09:22)
[2021-02-07 11:00] VITALS: BP 134/73
--- NOTE | 2021-02-07 11:06 | NUR ---
Patients discharge instructions reviewed with patient. Patient verbalized understanding. DC'd patients IV cannula intact. Patient taken to [employer] vehicle via wheelchair. Patient states he has all his belongings.
[2021-02-10] MEDS ORDERED: TESTOSTERONE CYPIONATE 200 MG/ML VIAL IM SCH (10:00)
== END 2021-02-07 11:05 | disposition home or self-care (01) | DRG 227 ==
LOC: PAS 06:35 → SUR 3N 13:45
PROVIDERS: ADMIT Surgery; ATTEND Surgery
PROC: 0DNW4ZZ Release Peritoneum, Percutaneous Endoscopic Approach (ICD-10-PCS; 2021-02-04)
PROC: 0WUF4JZ Supplement Abdominal Wall with Synthetic Substitute, Percutaneous Endoscopic Approach (ICD-10-PCS; principal; 2021-02-04 11:11)
PROC: 5A09357 Assistance with Respiratory Ventilation, Less than 24 Consecutive Hours, Continuous Positive Airway Pressure (ICD-10-PCS; 2021-02-06)
DX: K43.2 Incisional hernia without obstruction or gangrene (principal); E66.01 Morbid (severe) obesity due to excess calories; K66.0 Peritoneal adhesions (postprocedural) (postinfection); M62.08 Separation of muscle (nontraumatic), other site; R11.0 Nausea; Z68.42 Body mass index [BMI] 45.0-49.9, adult; K56.7 Ileus, unspecified
CPT/HCPCS: 36415; 80053; 81003; 82948; 85025; 93005; A4215; A4618; A7000; C1781; C9290; G0378; J0131; J0360; J0690; J1100; J1170; J1644; J1885; J2001; J2175; J2250; J2270; J2405; J2704; J2710; J3010; J3480; J3490; J7120; U0003; U0005

== ENCOUNTER 2021-10-13 07:07 | Day surgery (SDC) | payer MEDICAID ==
[~2021-10-13] VITALS: Ht 185.4 cm; Wt 157.7 kg
[~2021-10-13 07:07] MED LIST changes: -TEST200V10 IM; +TEST200V33 IM; -ceFAZolin inj. 3,000 MG in normal saline 100ml IV soln 100 ML IV ONE; -famotidine 20mg tablet PO ONE
[2021-10-13 07:15] VITALS: BP 143/91
[2021-10-13] MEDS ORDERED: diphenhydrAMINE 50 mg/ml inj ONE (07:18)
[2021-10-13] MEDS ORDERED: fentaNYL/PF 50MCG/1 ML 2ML syringe ONE (07:18)
[2021-10-13] MEDS ORDERED: LIDOcaine Viscous 15ml cup ONE (07:18)
[2021-10-13] MEDS ORDERED: MIDAZolam 1 MG/ML 5ML VIAL ONE (07:18)
[2021-10-13 09:05] VITALS: BP 126/71
[2021-10-13 09:15] VITALS: BP 126/77
[2021-10-13 09:25] VITALS: BP 112/66
[2021-10-13 09:35] VITALS: BP 120/76
== END 2021-10-13 09:35 | disposition home or self-care (01) ==
LOC: GI LAB 07:07
PROVIDERS: ATTEND Internal Medicine Gastroenterology
DX: R13.10 Dysphagia, unspecified (principal); K21.00 Gastro-esophageal reflux disease with esophagitis, without bleeding; K29.80 Duodenitis without bleeding; K29.50 Unspecified chronic gastritis without bleeding; B96.81 Helicobacter pylori [H. pylori] as the cause of diseases classified elsewhere; F17.210 Nicotine dependence, cigarettes, uncomplicated; G47.30 Sleep apnea, unspecified; Z79.899 Other long term (current) drug therapy; Z98.890 Other specified postprocedural states
CPT/HCPCS: 43239; 99152; J1200; J2250; J3010; J7040; Z7512; 99153; A4620